=== PATIENT | male | born 1945 ===

== ENCOUNTER 2018-04-04 13:00 | Emergency (ER) | payer MEDICARE, OTHER ==
[2018-04-04 13:01] VITALS: BMI 23.5
[2018-04-04 14:41] VITALS: BP 159/88; PULSE 74; RESP 18; TEMP 98.7; O2SAT 96
--- NOTE | 2018-04-04 15:21 | ED PDOC ---
Arrival/HPI - General Chief Complaint: Male Genitourinary Time Seen by Provider: 04/04/18 14:50 Historian: Patient, Warper Creeler (cherry dipper on phone helped with translation ) - History of Present Illness Narrative History of Present Illness (Text): 04/04/18 14:55 73 year old [place]-speaking M, whose past medical history includes right inguinal hernia repair, HTN, and previous cataract extraction, presents to the Emergency department with cc of pain to left inguinal area for several days. Patient notes he feels like hernia on the left side has ruptured from the inside. Patient states he only had surgery on right side for inguinal hernia in the past, but not on the left since it was smaller at the time. Patient denies nausea, vomiting, or any other complaints. Time/Duration: Other (pt notes pain to left inguinal area for several days) Symptom Onset: Gradual Symptom Course: Unchanged Activities at Onset: Light Past Medical History - Provider Review Nursing Documentation Reviewed: Yes - Infectious Disease Hx of Infectious Diseases: None - Cardiac Hx Hypertension: Yes - Pulmonary Hx Asthma: Yes - Neurological Hx Seizures: No - HEENT Hx HEENT Disorder: Yes Hx Cataracts: Yes (SURGERY) - Renal Hx Renal Disorder: No - Endocrine/Metabolic Hx Endocrine Disorders: No - Hematological/Oncological Hx Blood Disorders: No Hx Blood Transfusions: No Hx Cancer: No - Integumentary Hx Dermatological Disorder: No - Musculoskeletal/Rheumatological Hx Arthritis: Yes - Gastrointestinal Hx Gastritis: Yes - Genitourinary/Gynecological Hx Sexually Transmitted Diseases: No - Psychiatric Hx Psychophysiologic Disorder: No Hx Emotional Abuse: No Hx Physical Abuse: No Hx Substance Use: No - Surgical History Hx Cataract Extraction: Yes Other/Comment: eyelid lift - Anesthesia Hx Anesthesia: Yes Hx Anesthesia Reactions: No Hx Malignant Hyperthermia: No - Suicidal Assessment Feels Threatened In Home Enviroment: No Family/Social History - Physician Review Nursing Documentation Reviewed: Yes Family/Social History: No Known Family HX Smoking Status: Never Smoked Hx Alcohol Use: No Hx Substance Use: No Allergies/Home Meds Allergies/Adverse Reactions: Allergies No Known Allergies Allergy (Verified 06/09/16 18:52) Home Medications: Home Meds Medication Instructions Recorded Confirmed Enalapril Maleate [Vasotec] 10 mg PO DAILY 04/18/16 04/25/16 Tamsulosin [Flomax] 0.4 mg PO DAILY 04/18/16 04/25/16 Review of Systems - Physician Review All systems were reviewed & negative as marked: Yes (All other systems negative except that noted in the HPI.) Physical Exam - Physical Exam Narrative Physical Exam (Text): 04/04/18 14:55 Gen: VS reviewed, alert, well developed, well nourished, nontoxic, mild distress. ENT: normal pharynx Eye: EOMI, PERRL Neck: no JVD, supple, no adenopathy CV: regular rate, regular rhythm, no rubs, no murmer, no gallops, S1, S2, pulses equal and strong Pulm: no distress, clear to auscultation, no wheeze, no rhonci, breath sounds equal, no rales Abd: soft, nontender, no guarding, no rebound, no rigidity, normal bowel sounds. Small bulge in left suprapubic area which did not enlarge with valsalva. Ext: no edema Skin: good color, no rash, no cyanosis Psych: responds appropriately to questions, normal affect Neuro: oriented x3, CN2-12 intact grossly, motor intact, sensation intact nml except small bulge in left suprabpic area which did not enlarge with valsalva Vital Signs Reviewed: Yes Vital Signs Temp Pulse Resp BP Pulse Ox 04/04/18 13:30 98.7 F 74 18 159/88 H 96 Temperature: Afebrile Blood Pressure: Hypertensive (at 159/88) Pulse: Regular Respiratory Rate: Normal Appearance: Positive for: Well-Appearing, Non-Toxic Pain Distress: Mild Mental Status: Positive for: Alert and Oriented X 3 Medical Decision Making ED Course and Treatment: 04/04/18 14:55 Impression: Inguinal Pain and possible incarcerated hernia Differential Diagnosis included but are not limited to: Plan: -- Reassess and disposition Prior Visits: Notes and results from previous visits were reviewed. Progress Notes: Leaving Against Medical Advice (AMA): This patient is choosing to leave against medical advice. I have personally explained to the patient that choosing to do so may result in permanent bodily harm or . I have discussed at great length that without further evaluation and monitoring there may be unforeseen circumstances and/or deterioration causing permanent bodily harm or as a result of their choice. The patient is alert, oriented, and shows the mental capacity to make clear decisions regarding the patients health care at this time. The patient continues to wish to leave against medical advice. In light of the patients decision to leave AMA, follow-up has been arranged and the patient is aware of the importance of following up as instructed. The patient has been advised that they should return to the ED immediately if they change their mind at any time, or if their condition begins to change or worsen in any way. 04/11/18 05:38 - Scribe Statement The provider has reviewed the documentation as recorded by the Scribe Risa Daugherty All medical record entries made by the Scribe were at my direction and personally dictated by me. I have reviewed the chart and agree that the record accurately reflects my personal performance of the history, physical exam, medical decision making, and the department course for this patient. I have also personally directed, reviewed, and agree with the discharge instructions and disposition. Disposition/Present on Arrival - Present on Arrival Any Indicators Present on Arrival: No History of DVT/PE: No History of Uncontrolled Diabetes: No Urinary Catheter: No History of Decub. Ulcer: No History Surgical Site Infection Following: None - Disposition Have Diagnosis and Disposition been Completed?: Yes Diagnosis: Hernia Disposition: AGAINST MEDICAL ADVICE Disposition Time: 05:42 Condition: STABLE Discharge Instructions (ExitCare): Abdominal Hernia (DC) Print Language: FRENCH Referrals: [facility] [Outside] - Follow up with primary Donovan Dow MD [Staff Provider] - Follow up with primary Forms: [employer] ([place]ic)
== END 2018-04-04 15:43 | disposition left against medical advice (07) ==
LOC: ED 13:00
DX: K46.9 Unspecified abdominal hernia without obstruction or gangrene (principal)